=== PATIENT | female | born 1955 ===

== ENCOUNTER 2016-12-25 09:25 | Day surgery (SDC) | payer OTHER ==
[2016-12-21 08:35] VITALS: BMI 23.0
[2016-12-25 10:45] VITALS: BP 115/65; PULSE 77; RESP 20; TEMP 98.2; O2SAT 100
--- NOTE | 2016-12-25 11:39 | CP.SDSHP ---
Same Day Surgery H & P - History Proposed Procedure: US guided FNA of thyroid nodule Pre-Op Diagnosis: Thyroid nodule - Allergies Allergies: Allergies No Known Allergies Allergy (Verified 06/26/14 14:26) - Physical Exam Vital Signs: Vital Signs 12/25/16 09:44 Temperature 98.2 F Pulse Rate 77 Respiratory 20 Rate Blood Pressure 115/65 O2 Sat by Pulse 100 Oximetry - Impression Impression: Limited US of thyroid did not show any nodules > 1 cm. Largest nodule is 8 mm. This does not meet criterial for FNA. Pt. Evaluated Today:Candidate for Anesthesia & Procedure: No Short Stay Discharge - Short Stay Discharge Admitting Diagnosis/Reason for Visit: NONTOXIC SINGLE THYROID NODULE
== END 2016-12-25 11:40 | disposition home or self-care (01) ==
LOC: C.SPRAD 09:25
PROVIDERS: ATTEND Radiology Vascular & Interventional Radiology
DX: E04.1 Nontoxic single thyroid nodule (principal); E11.9 Type 2 diabetes mellitus without complications; Z53.09 Procedure and treatment not carried out because of other contraindication

== ENCOUNTER 2018-04-19 09:00 | Outpatient (CLI) | payer SELFPAY, OTHER | END 2018-04-19 09:01 | disposition home or self-care (01) | LOC: C.RADH 09:00 | DX: R13.10 Dysphagia, unspecified (principal) ==

== ENCOUNTER 2018-07-01 11:11 | Outpatient (CLI) | payer SELFPAY | END 2018-07-01 11:12 | disposition home or self-care (01) | LOC: C.LAB 11:11 ==